=== PATIENT | female | born 1970 | race Caucasian/White ===

== ENCOUNTER 2017-04-16 17:09 | Emergency (ER) ==
[2017-04-16 17:21] VITALS: BP 128/87; TEMP 97.6; BMI 39.6
--- NOTE | 2017-04-16 18:04 | ED.PDOC ---
General ED Provider: Dr. TETE MATIAS Chief Complaint: Respiratory Complaint Stated Complaint: COUGH, CONGESTION Time Seen by Physician: 17:10 Mode of Arrival: Walk-In Information Source: Patient Exam Limitations: No limitations Primary Care Provider: RASHMI GODDARD Nursing and Triage Documentation Reviewed and Agree: Yes Reviewed sepsis parameters & appropriate labs ordered?: Yes System Inflammatory Response Syndrome: Not Applicable Sepsis Protocol: For patient's 13 years and over: Temp is 96.8 and below OR 101 and greater Pulse >90 BPM Resp >20/minute Acutely Altered Mental Status Are patient's symptoms suggestive of a new infection, such as: -Pneumonia -Skin, Soft Tissue -Endocarditis -UTI -Bone, Joint Infection -Implantable Device -Acute Abdominal Infection -Wound Infection -Meningitis -Blood Stream Catheter Infection -Unknown Respiratory Complaint Exam - Respiratory Complaint/Exam Onset/Duration: 1 WEEK OF FLU LIKE SYMPTOMS Symptoms Are: Still present Timing: Intermittent Initial Severity: Moderate Current Severity: Moderate Location: Nose, Throat, Chest Character: Reports: Non-productive cough Aggravating: Reports: None Alleviating: Reports: Spontaneous resolution Associated Signs and Symptoms: Reports: URI, Nasal congestion Related History: Reports: Similar episode History of Healthcare-Acquired Pneumonia: No Related Surgical History: Reports: None Pulmonary Embolism Risk Factors: DVT Review of Systems - Review Of Systems Constitutional: Reports: Malaise Eyes: Reports: No symptoms Ears, Nose, Mouth, Throat: Reports: No symptoms Respiratory: Reports: Cough Cardiac: Reports: No symptoms GI: Reports: No symptoms : Reports: No symptoms Musculoskeletal: Reports: No symptoms Skin: Reports: No symptoms Neurological: Reports: No symptoms Endocrine: Reports: No symptoms Hematologic/Lymphatic: Reports: No symptoms All Other Systems: Reviewed and Negative Past Medical History - Past Medical History Previously Healthy: Yes Endocrine: Reports: None Cardiovascular: Reports: None Respiratory: Reports: None Hematological: Reports: None Gastrointestinal: Reports: None Genitourinary: Reports: None Neuro/Psych: Reports: None Musculoskeletal: Reports: None Cancer: Reports: None Last Menstrual Period: unknown - Surgical History General Surgical History: Reports: None - Family History Family History: Reports: None - Social History Smoking Status: Former smoker Hx Substance Use: No Alcohol Screening: None Physical Exam - Physical Exam Appearance: Well-appearing Eyes: MOY, EOMI, Conjunctiva clear ENT: Ears normal, Nose normal, Oropharynx normal Respiratory: Breath sounds diminished, Rhonchi Cardiovascular: RRR, Pulses normal, No rub, No murmur GI/: Soft, Nontender, No masses, Bowel sounds normal, No Organomegaly Musculoskeletal: Normal strength, ROM intact, No edema, No calf tenderness Skin: Warm, Dry, Normal color Neurological: Sensation intact, Motor intact, Reflexes intact, Cranial nerves intact, Alert, Oriented Psychiatric: Affect appropriate, Mood appropriate Critical Care Note - Critical Care Note Total Time (mins): 0 Course - Course Orders, Labs, Meds: Orders Category Date Time Status CBC W/ AUTO DIFF Stat LAB 04/16/17 17:58 Ordered COMPREHENSIVE METABOLIC PANEL Stat LAB 04/16/17 17:58 Ordered MOLECULAR FLU A/B Stat LAB 04/16/17 17:58 Uncollected MOLECULAR GROUP A STREP Stat LAB 04/16/17 17:58 Uncollected Ceftriaxone Sodium [Rocephin] MEDS 04/16/17 17:59 Stat 1 gm IM ONCE STA Dexamethasone 4 mg/ml Inj [Decadron 4 mg/ml Sdv] MEDS 04/16/17 17:59 Stat 8 mg IM ONCE STA Hydrocodone/Chlorphen Polis [Tussionex] MEDS 04/16/17 18:01 Stat 5 ml PO ONCE STA Lidocaine HCl/Pf [Lidocaine HCl 1% Sdv] MEDS 04/16/17 17:59 Stat 5 ml SUBCUT ONCE STA CT CHEST W/O CONTRAST Stat RADS 04/16/17 17:59 Ordered Medications Discontinued Medications Generic Name Dose Route Start Last Admin Trade Name Freq PRN Reason Stop Dose Admin Ceftriaxone Sodium 1 gm 04/16/17 17:59 Rocephin IM 04/16/17 18:00 ONCE STA Chlorphenir/Hydrocodone Polistirex 5 ml 04/16/17 18:01 Tussionex PO 04/16/17 18:02 ONCE STA Dexamethasone Sodium Phosphate 8 mg 04/16/17 17:59 Decadron 4 Mg/Ml Sdv IM 04/16/17 18:00 ONCE STA Lidocaine HCl 5 ml 04/16/17 17:59 Lidocaine Hcl 1% Sdv SUBCUT 04/16/17 18:00 ONCE STA Vital Signs: Temp Pulse Resp BP Pulse Ox 04/16/17 17:10 97.6 F 84 20 128/87 98 Departure - Departure Time of Disposition: 19:00 Disposition: HOME SELF-CARE Discharge Problem: Bronchitis Instructions: Acute Bronchitis (ED), COPD (Chronic Obstructive Pulmonary Disease) (ED), Bronchospasm (ED), Wheezing (ED) Condition: Good Pt referred to PMD for follow-up: Yes Additional Instructions: Please call your Family Physician as soon as possible to schedule a follow-up appointment. Allergies/Adverse Reactions: Allergies codeine Adverse Reaction (Unverified 08/05/13 09:07) Penicillins Adverse Reaction (Verified 04/16/17 17:22) Home Medications: Ambulatory Orders Albuterol Sulfate [Albuterol Sulfate Hfa] 2 puff IH BID 08/05/13 Omeprazole [Prilosec] 1 tab PO DAILY 08/05/13 Budesonide/Formoterol Fumarate [Symbicort 160-4.5 Mcg Inhaler] 2 puff IH BID 05/03 Oxybutynin Chloride [Ditropan Xl] 10 mg PO DAILY 04/16/17 Pantoprazole Sodium [Protonix] 20 mg PO DAILY 04/16/17 Sertraline HCl [Zoloft] 50 mg PO DAILY 04/16/17 Sumatriptan Succinate [Imitrex] 25 mg PO ONCE PRN 04/16/17 Warfarin Sodium [Coumadin] 10 mg PO DAILY 04/16/17 Disposition Discussed With: Patient
[2017-04-16] MEDS: TUSSIONEX PO STA (18:46)
[2017-04-16] MEDS: ROCEPHIN IM STA (18:47)
[2017-04-16] MEDS: DECADRON 4 MG/ML SDV IM STA (18:48)
[2017-04-16] MEDS: LIDOCAINE HCL 1% SDV SUBCUT STA (18:48)
--- NOTE | 2017-04-16 19:02 | CT ---
EXAM: CT chest without contrast. HISTORY: Cough. COMPARISON: None. TECHNIQUE: Contiguous axial images at 5 mm intervals obtained from lung apices to the upper abdomen. Study was performed without IV contrast. Sagittal and coronal reformats were reviewed. FINDINGS: There is no consolidation or effusion. The pulmonary interstitium appears normal. There is no pleural thickening. The airways are widely patent. There is a small noncalcified nodule in th e left lower lobe, measuring 4 mm. No other nodules are identified. There is no pleural thickening. The heart size is within normal limits. There is no significant mediastinal or hilar adenopathy. There is no axillary adenopathy. 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 In the upper abdomen is otherwise unremarkable. The osseous structures are normal for age. IMPRESSION: 1. No acute pulmonary disease. 2. 4 mm noncalcified nodule in the left lower lobe. According to the Fleischner Society guidelines, no further follow-up is needed in the low risk patient. In the high risk patient, recommend optional CT in 12 months.
== END 2017-04-16 19:33 | disposition home or self-care (01) ==
LOC: ED 17:09
DX: J40 Bronchitis, not specified as acute or chronic (principal)
CPT/HCPCS: 36415; 80053; 85025; 87502; 87651; 96372; 99283